=== PATIENT | male | born 1960 | race Caucasian/White ===

== ENCOUNTER 2016-12-19 07:14 | Emergency (ER) | payer OTHER ==
[~2016-12-19] VITALS: Ht 180.3 cm; Wt 136.8 kg
[2016-12-19] MEDS ORDERED: MOTRIN800 MG PO (09:11)
[2016-12-19 09:23] VITALS: BP 124/87
== END 2016-12-19 09:26 | disposition home or self-care (01) ==
LOC: EME 07:14
DX: S83.91XA Sprain of unspecified site of right knee, initial encounter (principal); X50.0XXA Overexertion from strenuous movement or load, initial encounter
CPT/HCPCS: 73564; 99281; 99283